=== PATIENT | male | born 1970 | race Two or more races ===

== ENCOUNTER 2017-12-26 11:24 | Outpatient (CLI) | payer OTHER | END 2017-12-26 15:00 | disposition home or self-care (01) | LOC: RAD 11:24 | DX: N20.0 Calculus of kidney (principal) ==

== ENCOUNTER 2017-12-29 09:14 | Outpatient (CLI) | payer OTHER | END 2017-12-29 09:21 | disposition home or self-care (01) | LOC: SONOGRAMA 09:14 | DX: N20.0 Calculus of kidney (principal); R31.29 Other microscopic hematuria ==

== ENCOUNTER 2020-12-28 09:56 | Outpatient (CLI) | payer OTHER | END 2020-12-28 10:07 | disposition home or self-care (01) | LOC: SONOGRAMA 09:56 | PROVIDERS: ATTEND Urology | DX: K20.0 Eosinophilic esophagitis (principal); K31.1 Adult hypertrophic pyloric stenosis; R10.84 Generalized abdominal pain ==

== ENCOUNTER 2021-02-19 07:51 | Outpatient (CLI) | payer OTHER | END 2021-02-19 08:10 | disposition home or self-care (01) | LOC: TOM 07:51 | PROVIDERS: ATTEND Urology | DX: N28.1 Cyst of kidney, acquired (principal); R31.1 Benign essential microscopic hematuria ==

== ENCOUNTER 2022-08-14 13:08 | Outpatient (CLI) | payer OTHER | END 2022-08-14 13:21 | disposition home or self-care (01) | LOC: RAD 13:08 | PROVIDERS: ATTEND Specialist | DX: J45.991 Cough variant asthma (principal) ==

== ENCOUNTER 2024-07-21 11:36 | Outpatient (CLI) | payer OTHER | END 2024-07-21 11:43 | disposition home or self-care (01) | LOC: RAD 11:36 | PROVIDERS: ATTEND Urology | DX: R05.3 Chronic cough (principal) ==